=== PATIENT | male | born 1960 | race Caucasian/White ===

== ENCOUNTER 2020-05-27 19:25 | Emergency (ER) | payer OTHER ==
[~2020-05-27] VITALS: Ht 170.2 cm; Wt 70.3 kg
[2020-05-27 20:12] VITALS: BP 145/68
[2020-05-27] MEDS ORDERED: TDAP [DIPH/PERTUSSIS/TET] 0.5 ML VIAL IM ONE (22:00)
--- NOTE | 2020-05-27 22:10 | NUR ---
PT REFUSED TDAP BECAUSE IT WAS UP TO DATE. Patient discharged to home in stable condition. Written and verbal after care instructions given. Patient verbalizes understanding of instruction. ambulatory with a steady gait.
== END 2020-05-27 22:10 | disposition home or self-care (01) ==
LOC: ER 19:33
DX: S61.217A Laceration without foreign body of left little finger without damage to nail, initial encounter (principal); S09.8XXA Other specified injuries of head, initial encounter; E78.00 Pure hypercholesterolemia, unspecified; W01.0XXA Fall on same level from slipping, tripping and stumbling without subsequent striking against object, initial encounter; Y93.89 Activity, other specified; Y92.89 Other specified places as the place of occurrence of the external cause; Y99.8 Other external cause status
CPT/HCPCS: 73130-TC